=== PATIENT | male | born 1960 | race Caucasian/White ===

== ENCOUNTER → 2016-12-13 | Outpatient (CLI) | payer BC ==
--- NOTE | 2016-12-13 14:32 | ECHOS ---
DATE OF SERVICE: 12/13/2016 AGE: 55Y SEX: M HT: 68" WT: 190 lbs. Protocol Girma: X Others: Stress Echo Stage: 3 Dur. of Exercise: 7:10 *Heart Rate Blood Pressure *Rest: 82 Rest: 118/45 * *Max. Achieved: 152 Maximum BP: 172/59 85% PMHR: 141 100% PMHR: 166 *METS: 8.1 INDICATIONS: Chest pain. MEDICATIONS: Lisinopril. STRESS DATA: Pretesting physical examination showed a heart rate of 82, pressure is 118/45 mmHg. Baseline EKG showed sinus rhythm. The patient exercised on the treadmill according to Girma protocol for a total 7 minutes and achieved 8.0. METs. Max heart rate was 152, which is about 91% of maximum predicted heart rate. Maximum blood pressure was 172/59 mmHg. Clinically, the patient did not have any symptoms of chest pain or discomfort during the testing or in the recovery and the EKG did not show any significant ST or T-wave abnormalities consistent with ischemia. ECHOCARDIOGRAM IMAGES: On echocardiogram images including parasternal long axis view, parasternal short axis view, apical 4 chamber view, and apical 2 chamber view were obtained as the baseline images, at the peak of the heart rate, as well as on recovery. The echocardiogram images showed good augmentation in the left ventricular systolic function without any evidence of wall motion abnormalities consistent with ischemia. CONCLUSION: 1. Good exercise capacity. 2. Normal EKG in response to exercise. 3. Normal echocardiogram in response to exercise. 4. Essentially normal stress echocardiogram for the patient.
== END | disposition home or self-care (01) ==
LOC: RADNMMAIN 09:52
PROVIDERS: ATTEND Family Medicine
DX: R07.9 Chest pain, unspecified (principal)
CPT/HCPCS: 93017; 93350

== ENCOUNTER 2017-08-01 08:29 | Day surgery (SDC) | payer BC ==
[2017-07-31 08:52] VITALS: BMI 29.6
[~2017-08-01 08:29] MED LIST: LACTATED RINGERS 1,000 ML IV SCH
[2017-08-01 08:44] VITALS: RESP 16; TEMP 98.2
[2017-08-01] MEDS ORDERED: LIDOCAINE 1% 20 ML VIAL (10MG/ML) FOR IV START INTRADERMA ONE (08:49)
--- NOTE | 2017-08-01 09:42 | P.PCN ---
Date of Procedure: 08/01/17 Procedure(s) Performed: BRIEF HISTORY: Patient is a 56-year-old pleasant white male, scheduled for an elective colonoscopy as a part of screening for colonic neoplasia. He recently had a positive cologard stool testing. PROCEDURE PERFORMED: Colonoscopy with snare polypectomy. PREOPERATIVE DIAGNOSIS: Positive Cologard/screening for colon cancer. IV sedation per Anesthesia. PROCEDURE: After informed consent was obtained, the patient, was brought into the endoscopy unit. IV sedation was administered by Anesthesia under continuous monitoring. Digital rectal examination was normal. Initially the Olympus CF- 160 flexible video colonoscope was then inserted in the rectum, gradually advanced into the cecum without any difficulty. Careful examination was performed as the scope was gradually being withdrawn. Ileocecal valve and the appendiceal orifice were visualized and appeared normal. Prep was excellent. Mucosa of the cecum, appeared normal. In the hepatic flexure there was a 1 cm polyp removed by snare polypectomy. The rest of the ascending colon, transverse colon, descending colon, appeared normal. In the distal sigmoid colon at 20 cm from the anal was there was another 1 cm polyp removed by snare polypectomy. The rest of the sigmoid colon, and rectum appeared normal. Retroflexion was performed in the rectum and no lesions were seen. The patient tolerated the procedure well. IMPRESSION: 1 cm hepatic flexure polyp status post polypectomy 1 cm distal sigmoid colon polyp status post polypectomy RECOMMENDATIONS: Findings of this examination were discussed with the patient as well as his family. He was advised to follow with the biopsy results. If the biopsy shows a tubular adenoma he can have a repeat colonoscopy in 3 years.
[2017-08-01 10:16] VITALS: BP 130/74; PULSE 59
== END 2017-08-01 10:39 | disposition home or self-care (01) ==
LOC: ORWHC2ENDO 08:29
PROVIDERS: ATTEND Internal Medicine Gastroenterology
DX: D12.3 Benign neoplasm of transverse colon (principal); K63.5 Polyp of colon; R19.5 Other fecal abnormalities; I10 Essential (primary) hypertension; C44.90 Unspecified malignant neoplasm of skin, unspecified; Z79.899 Other long term (current) drug therapy
CPT/HCPCS: 45385; 88305

== ENCOUNTER 2018-03-20 01:11 | Emergency (ER) | payer BC ==
--- NOTE | 2018-03-20 02:11 | ED ---
SOB HPI - General Chief Complaint: Shortness of Breath Stated Complaint: difficulty sleeping Time Seen by Provider: 03/20/18 01:37 Source: patient Mode of arrival: ambulatory Limitations: no limitations - History of Present Illness Initial Comments: Patient is a 57-year-old man who has been having difficulty sleeping due to apnea. The patient states that he was told he probably has sleep apnea however he has not not been able to use the apnea machine as he states it is too loud and keeps him awake. The patient believes every time that he is falling asleep the machine wakes him he has not slept well now for couple of days. Patient is not having shortness of breath while he is awake. No dyspnea on exertion. MD Complaint: shortness of breath Onset/Timin -: week(s) Severity: moderate Improves With: nothing (Been) Worsens With: other Associated Symptoms: denies other symptoms - Related Data Home Medications Medication Instructions Recorded Confirmed Lisinopril [Zestril] 10 mg PO QAM 07/31/17 03/20/18 Melatonin 5 mg PO HS 07/31/17 03/20/18 Allergies Allergy/AdvReac Type Severity Reaction Status Date / Time No Known Allergies Allergy Verified 03/20/18 01:28 Review of Systems ROS Statement: Those systems with pertinent positive or pertinent negative responses have been documented in the HPI. ROS Other: All systems not noted in ROS Statement are negative. Constitutional: Denies: fever, chills, weakness Respiratory: Reports: as per HPI, other (Sleep apnea). Denies: cough, dyspnea Cardiovascular: Denies: chest pain, palpitations, edema Gastrointestinal: Denies: abdominal pain Neurological: Denies: headache, weakness Past Medical History Past Medical History: Cancer, Hypertension, Sleep Apnea/CPAP/BIPAP Additional Past Medical History / Comment(s): hx skin ca. states positive cologard History of Any Multi-Drug Resistant Organisms: None Reported Past Surgical History: Adenoidectomy Additional Past Surgical History / Comment(s): sinus sx Past Anesthesia/Blood Transfusion Reactions: No Reported Reaction Past Psychological History: No Psychological Hx Reported Smoking Status: Never smoker Past Alcohol Use History: None Reported Past Drug Use History: None Reported - Past Family History Mother Family Medical History: No Reported History General Exam Limitations: no limitations General appearance: alert, in no apparent distress Head exam: Present: atraumatic, normocephalic Eye exam: Present: normal appearance. Absent: scleral icterus, conjunctival injection ENT exam: Present: normal oropharynx Neck exam: Present: normal inspection Respiratory exam: Present: normal lung sounds bilaterally. Absent: respiratory distress, wheezes, rales, rhonchi, stridor Cardiovascular Exam: Present: regular rate, normal rhythm, normal heart sounds. Absent: systolic murmur, diastolic murmur, rubs, gallop GI/Abdominal exam: Present: soft. Absent: tenderness, guarding, rebound Extremities exam: Present: normal inspection, normal capillary refill. Absent: pedal edema, calf tenderness Neurological exam: Present: alert Skin exam: Present: warm, dry, intact, normal color. Absent: rash Course Vital Signs 03/20/18 03/20/18 03/20/18 01:23 01:52 03:42 Temperature 98.1 F Pulse Rate 77 71 Respiratory 20 18 17 Rate Blood Pressure 140/88 135/74 O2 Sat by Pulse 96 97 Oximetry 03/20/18 05:40 Temperature 98.3 F Pulse Rate 73 Respiratory 18 Rate Blood Pressure 127/78 O2 Sat by Pulse 97 Oximetry Medical Decision Making - Medical Decision Making Patient's 57-year-old man presenting for difficulty in with sleeping as the apnea machine keeps him awake. I did discuss following with the system dispatcher to see if there is another option that they are able to use to treat his sleep apnea. - Lab Data Result diagrams: 03/20/18 02:30 03/20/18 02:30 Lab Results 03/20/18 03/20/18 03/20/18 Range/Units 02:30 02:30 02:30 WBC 6.6 (3.8-10.6) k/uL RBC 4.96 (4.30-5.90) m/uL Hgb 15.0 (13.0-17.5) gm/dL Hct 44.3 (39.0-53.0) % MCV 89.2 (80.0-100.0) fL MCH 30.3 (25.0-35.0) pg MCHC 33.9 (31.0-37.0) g/dL RDW 12.6 (11.5-15.5) % Plt Count 201 (150-450) k/uL Neutrophils % 70 % Lymphocytes % 17 % Monocytes % 7 % Eosinophils % 3 % Basophils % 0 % Neutrophils # 4.6 (1.3-7.7) k/uL Lymphocytes # 1.2 (1.0-4.8) k/uL Monocytes # 0.5 (0-1.0) k/uL Eosinophils # 0.2 (0-0.7) k/uL Basophils # 0.0 (0-0.2) k/uL PT (9.0-12.0) sec INR (<1.2) APTT (22.0-30.0) sec D-Dimer (<0.60) mg/L FEU Sodium 139 (137-145) mmol/L Potassium 4.1 (3.5-5.1) mmol/L Chloride 106 (98-107) mmol/L Carbon Dioxide 24 (22-30) mmol/L Anion Gap 9 mmol/L BUN 20 (9-20) mg/dL Creatinine 0.87 (0.66-1.25) mg/dL Est GFR (CKD-EPI)AfAm >90 (>60 ml/min/1.73 sqM) Est GFR (CKD-EPI)NonAf >90 (>60 ml/min/1.73 sqM) Glucose 105 H (74-99) mg/dL Calcium 9.1 (8.4-10.2) mg/dL Total Bilirubin 0.7 (0.2-1.3) mg/dL AST 31 (17-59) U/L ALT 42 (21-72) U/L Alkaline Phosphatase 80 (38-126) U/L Total Creatine Kinase 312 H (55-170) U/L CK-MB (CK-2) 3.4 H (0.0-2.4) ng/mL CK-MB (CK-2) Rel Index 1.1 Troponin I <0.012 (0.000-0.034) ng/mL NT-Pro-B Natriuret Pep pg/mL Total Protein 6.3 (6.3-8.2) g/dL Albumin 3.8 (3.5-5.0) g/dL 03/20/18 03/20/18 Range/Units 02:30 02:30 WBC (3.8-10.6) k/uL RBC (4.30-5.90) m/uL Hgb (13.0-17.5) gm/dL Hct (39.0-53.0) % MCV (80.0-100.0) fL MCH (25.0-35.0) pg MCHC (31.0-37.0) g/dL RDW (11.5-15.5) % Plt Count (150-450) k/uL Neutrophils % % Lymphocytes % % Monocytes % % Eosinophils % % Basophils % % Neutrophils # (1.3-7.7) k/uL Lymphocytes # (1.0-4.8) k/uL Monocytes # (0-1.0) k/uL Eosinophils # (0-0.7) k/uL Basophils # (0-0.2) k/uL PT 10.7 (9.0-12.0) sec INR 1.1 (<1.2) APTT 27.2 (22.0-30.0) sec D-Dimer <0.17 (<0.60) mg/L FEU Sodium (137-145) mmol/L Potassium (3.5-5.1) mmol/L Chloride (98-107) mmol/L Carbon Dioxide (22-30) mmol/L Anion Gap mmol/L BUN (9-20) mg/dL Creatinine (0.66-1.25) mg/dL Est GFR (CKD-EPI)AfAm (>60 ml/min/1.73 sqM) Est GFR (CKD-EPI)NonAf (>60 ml/min/1.73 sqM) Glucose (74-99) mg/dL Calcium (8.4-10.2) mg/dL Total Bilirubin (0.2-1.3) mg/dL AST (17-59) U/L ALT (21-72) U/L Alkaline Phosphatase (38-126) U/L Total Creatine Kinase (55-170) U/L CK-MB (CK-2) (0.0-2.4) ng/mL CK-MB (CK-2) Rel Index Troponin I (0.000-0.034) ng/mL NT-Pro-B Natriuret Pep 36 pg/mL Total Protein (6.3-8.2) g/dL Albumin (3.5-5.0) g/dL - EKG Data -: EKG Interpreted by Ut EKG shows normal: sinus rhythm, axis (normal), intervals (normal), QRS complexes (normal), ST-T waves (normal) Rate: normal (Rate 65 bpm) Interpretation: normal EKG Disposition Clinical Impression: Sleep apnea Disposition: HOME SELF-CARE Condition: Good Instructions: Sleep Apnea (DC) Is patient prescribed a controlled substance at d/c from ED?: No Referrals: Tawanda Doe MD [Primary Care Provider] - 1-2 days Seymour Hobson MD [STAFF PHYSICIAN] - 1-2 days
[2018-03-20 02:46] LABS: Basophils % (A) 0 %; Eosinophils # (A) 0.2 k/uL (0-0.7); Eosinophils % (A) 3 %; HCT 44.3 % (39.0-53.0); Lymphocytes # (A) 1.2 k/uL (1.0-4.8); Lymphocytes % (A) 17 %; MCH 30.3 pg (25.0-35.0); MCHC 33.9 g/dL (31.0-37.0); MCV 89.2 fL (80.0-100.0); Mean Platelet Volume 6.1; Monocytes # (A) 0.5 k/uL (0-1.0); Monocytes % (A) 7 %; Neutrophils # (A) 4.6 k/uL (1.3-7.7); Neutrophils % (A) 70 %; Platelet Count 201 k/uL (150-450); RBC 4.96 m/uL (4.30-5.90); RDW 12.6 % (11.5-15.5); WBC 6.6 k/uL (3.8-10.6)
[2018-03-20 02:54] LABS: ALT 42 U/L (21-72); AST 31 U/L (17-59); Albumin 3.8 g/dL (3.5-5.0); Alkaline Phosphatase 80 U/L (38-126); Anion Gap 9 mmol/L; Blood Urea Nitrogen 20 mg/dL (9-20); Calcium 9.1 mg/dL (8.4-10.2); Carbon Dioxide 24 mmol/L (22-30); Chloride 106 mmol/L (98-107); Glucose 105 mg/dL (74-99); Potassium 4.1 mmol/L (3.5-5.1); Sodium 139 mmol/L (137-145); Total Bilirubin 0.7 mg/dL (0.2-1.3); Total Protein 6.3 g/dL (6.3-8.2)
[2018-03-20 02:57] LABS: D-Dimer <0.17 mg/L FEU (<0.60); INR 1.1 (<1.2); Partial Thromboplastin Time 27.2 sec (22.0-30.0); Prothrombin Time 10.7 sec (9.0-12.0)
[2018-03-20 02:58] LABS: Creatine Kinase 312 U/L (55-170)
--- NOTE | 2018-03-20 03:11 | XR ---
EXAMINATION TYPE: XR chest 2V DATE OF EXAM: 03/20/2018 COMPARISON: 02/18/2013 HISTORY: Short of breath TECHNIQUE: Frontal and lateral views of the chest are obtained. FINDINGS: Heart and mediastinum are normal. Lungs are clear. Diaphragm is normal. Bony thorax appear s normal. IMPRESSION: Normal chest. No change.
[2018-03-20 03:12] LABS: Creatine Kinase MB 3.4 ng/mL (0.0-2.4); Troponin I <0.012 ng/mL (0.000-0.034)
[2018-03-20 05:41] VITALS: BP 127/78; PULSE 73; RESP 18; TEMP 98.3
== END 2018-03-20 05:51 | disposition home or self-care (01) ==
LOC: EC 01:11
DX: G47.30 Sleep apnea, unspecified (principal); R06.02 Shortness of breath; I10 Essential (primary) hypertension; Z85.828 Personal history of other malignant neoplasm of skin; Z99.89 Dependence on other enabling machines and devices; Z79.899 Other long term (current) drug therapy
CPT/HCPCS: 36415; 71046; 80053; 82550; 82553; 83880; 84484; 85025; 85379; 85610; 85730; 93005; 99285

== ENCOUNTER → 2018-11-11 | Outpatient (CLI) | payer BC ==
[2018-11-11 15:43] LABS: HCT 44.7 % (39.0-53.0); MCH 30.1 pg (25.0-35.0); MCHC 33.5 g/dL (31.0-37.0); MCV 89.9 fL (80.0-100.0); Mean Platelet Volume 6.4; Platelet Count 222 k/uL (150-450); RBC 4.97 m/uL (4.30-5.90); RDW 13.3 % (11.5-15.5); WBC 7.1 k/uL (3.8-10.6)
[2018-11-11 15:48] LABS: Anion Gap 6 mmol/L; Blood Urea Nitrogen 17 mg/dL (9-20); Carbon Dioxide 28 mmol/L (22-30); Chloride 106 mmol/L (98-107); Sodium 140 mmol/L (137-145)
== END | disposition home or self-care (01) ==
LOC: LABPAT 14:28
PROVIDERS: ATTEND Internal Medicine Interventional Cardiology
DX: Z01.812 Encounter for preprocedural laboratory examination (principal); I25.10 Atherosclerotic heart disease of native coronary artery without angina pectoris; I10 Essential (primary) hypertension
CPT/HCPCS: 36415; 80051; 82565; 83735; 84520; 85027

== ENCOUNTER 2018-11-13 10:04 | Day surgery (SDC) | payer BC ==
[~2018-11-13 10:04] MED LIST changes: +ALPRAZolam 0.25 MG TAB PO PRN; +ALPRAZolam 0.5 MG TAB PO PRN; +ASPIRIN 325 MG TAB PO STA; +ATORVASTATIN 80 MG TAB PO STA; -LACTATED RINGERS 1,000 ML IV SCH; +NITROGLYCERIN SL TABS 0.4 MG TAB SUBLINGUAL PRN; +SODIUM CHLORIDE 0.9% 1,000 ML in EMPTY BAG 1 BAG IV ONE
[2018-11-13 10:23] VITALS: RESP 18
[2018-11-13] MEDS ORDERED: HEPARIN SODIUM 1,000 UN/ML (10ML VL) ONE ×2 (11:47→12:50)
[2018-11-13] MEDS ORDERED: VERAPAMIL 2.5 MG/ML 2 ML AMP ONE (11:47)
[2018-11-13] MEDS ORDERED: LIDOCAINE 1% INJ 10MG/ML (20 ML MDV) ONE (11:47)
[2018-11-13] MEDS: MIDAZOLAM (PF) 2 MG/2 ML VIAL IV ONE ×2 (11:58→12:05)
[2018-11-13] MEDS ORDERED: LIDOCAINE 1% INJ 10MG/ML (20 ML MDV) SQ ONE (12:04)
[2018-11-13] MEDS: VERAPAMIL SYRINGE (5 MG/10 ML) INTRAARTER ONE ×2 (12:06→12:46)
[2018-11-13] MEDS: HEPARIN SODIUM 1,000 UN/ML (10ML VL) IV ONE ×2 (12:07→12:51)
[2018-11-13] MEDS ORDERED: niCARdipine 25 MG/10 ML VIAL ONE (12:14)
[2018-11-13] MEDS: NITROGLYCERIN 1000MCG/10ML SYRINGE INTRACORON ONE ×2 (12:15→12:32)
[2018-11-13] MEDS ORDERED: HYDROmorphone 1 MG/ML 1 ML SYRINGE ONE (12:16)
[2018-11-13] MEDS ORDERED: HYDROmorphone 1 MG/ML 1 ML SYRINGE IVP ONE (12:20)
[2018-11-13] MEDS ORDERED: PRASUGREL 10 MG TAB ONE (12:20)
[2018-11-13] MEDS ORDERED: PRASUGREL 10 MG TAB PO ONE (12:23)
[2018-11-13] MEDS ORDERED: IOPAMIDOL-370 125ML BTL INJ ONE (12:38)
[2018-11-13] MEDS ORDERED: MAG HYDROX/AL HYDROX/SIMETH 30 ML CUP PO PRN (12:53)
[2018-11-13] MEDS ORDERED: RX INFO: IV CONTRAST WAS GIVEN 1 EACH MISC MISCELLANE PRN (12:53)
[2018-11-13] MEDS ORDERED: NITROGLYCERIN SL TABS 0.4 MG TAB SUBLINGUAL PRN (12:53)
[2018-11-13] MEDS ORDERED: ZOLPIDEM 5 MG TAB PO PRN (12:53)
[2018-11-13] MEDS ORDERED: ATROPINE SULFATE 0.1 MG/ML 10ML SYRINGE IV PRN (12:53)
[2018-11-13] MEDS ORDERED: SODIUM CHLORIDE 0.9% 1,000 ML IV SCH (13:00)
--- NOTE | 2018-11-13 13:11 | LTR ---
November 13, 2018 Re: Herberth Godinez Dear Dr. Doe: Herberth Godinez underwent today a heart catheterization and was found to have severe disease involving the proximal left anterior descending artery. I did perform successful stenting of the LAD with good angiographic results and without any complication. Thank you for allowing me to participate in his care and please do not hesitate to call if you have any question or concern. Sincerely, MD MALIHA Power / CHICA: [id number] /
--- NOTE | 2018-11-13 14:23 | CC ---
CARDIAC CATHETERIZATION REPORT CARDIAC CATHETERIZATION AND PERCUTANEOUS CORONARY INTERVENTION: DATE OF SERVICE: November 13, 2018 PERFORMING PHYSICIAN: Jackson Greene MD, lithographic proofer. PROCEDURE PERFORMED: 1. Selective right and left coronary angiogram. 2. Left heart catheterization. 3. Successful stenting of the proximal left anterior descending artery using 3.5 x 18 mm Xience drug-eluting stent, which was postdilated using 3.75 mm NC balloon with an excellent angiographic results and reduction of stenosis from 80% to 0%. INDICATION: This is a pleasant 57-year-old gentleman who sees Dr. Doe as an outpatient who has hypertension and dyslipidemia who was experiencing symptoms of chest discomfort concerning for angina. Because of the nature of his symptoms, I did recommend proceeding with coronary angiogram. APPROACH: Right radial artery. COMPLICATION: None. LEVEL OF SEDATION: Moderate with sedation length of 44 minutes. PROCEDURE DESCRIPTION: After obtaining an informed consent, the patient was brought to the cardiac feed mill lab technician. The right radial artery was cannulated using micropuncture technique, the micropuncture wire passed easily then I placed a 6-Croatian sheath in the right radial artery. At that point, I gave the patient 2 mg of verapamil IA and 10,000 units of heparin IV. Subsequently I did selective right and left coronary angiogram using JR4 and JL3.5 catheters. Left heart catheterization was performed using the 5-Croatian pigtail catheter. After that I did intervene on the right coronary artery. Please see a separate paragraph for that. SELECTIVE CORONARY ANGIOGRAM: 1. The right coronary artery is a large caliber vessel and it is a dominant vessel. The RCA has an inferior takeoff, has mild disease only. Distally bifurcates into PDA and PLV branches both appeared to be angiographically normal. 2. The left main is angiographically normal. It bifurcates into left circumflex, ramus intermedius, and left anterior descending artery. 3. Left circumflex is a moderate caliber vessel. It is a nondominant vessel and appeared to be angiographically normal. 4. The ramus intermedius is a large caliber vessel. The proximal portion appeared to be normal and gives rise to branch which has an ostial disease appeared to be in the range of 40%. The mid and distal ramus intermedius appeared to be angiographically normal. 5. The LAD: The proximal LAD has a lesion appeared to be in the range of 70% to 80%, hazy and calcified as well. The mid and distal LAD appeared to be angiographically normal. HEMODYNAMICS: The left ventricular end-diastolic pressure was about 10 mmHg without significant gradient across the aortic valve. PCI OF THE LAD: Anticoagulation was initiated using the heparin which was given during the diagnostic heart catheterization, but we did perform an ACT at the beginning. Subsequently I did engage the left main using JL3.5 Guide. I did wire the LAD using a run-through wire. After that, I did balloon angioplasty using 3.0 x 12 mm balloon before I deployed a 3.5 x 18 mm Xience ELAINE where the stent was positioned under fluoroscopy guidance and deployed at 12 atmospheres for 20 seconds. I did post dilate the stent using 3.75 mm NC balloon. The final angiogram showed excellent results and the procedure was completed without any complication. CONCLUSION: 1. Severe disease involving the proximal left anterior descending artery. 2. Successful stenting of the proximal LAD using 3.5 x 18 mm Xience drug-eluting stent, which was postdilated using 3.75 mm NC balloon with excellent angiographic results. POSTPROCEDURE MANAGEMENT: 1. Dual antiplatelet therapy. 2. Risk factors modifications. 3. Follow up with the patient. MMODL / IJN: [id number] /
[2018-11-13] MEDS: METOPROLOL TARTRATE 12.5 MG TAB PO SCH (20:20)
[2018-11-13] MEDS ORDERED: ATORVASTATIN 80 MG TAB PO SCH (21:00)
[2018-11-13 22:13] VITALS: BMI 31.1
[2018-11-14 06:50] LABS: Basophils % (A) 0 %; Eosinophils # (A) 0.2 k/uL (0-0.7); Eosinophils % (A) 3 %; HCT 44.4 % (39.0-53.0); HGB 14.1 gm/dL (13.0-17.5); Lymphocytes # (A) 1.4 k/uL (1.0-4.8); Lymphocytes % (A) 20 %; MCH 28.7 pg (25.0-35.0); MCHC 31.7 g/dL (31.0-37.0); MCV 90.7 fL (80.0-100.0); Mean Platelet Volume 6.3; Monocytes # (A) 0.6 k/uL (0-1.0); Monocytes % (A) 8 %; Neutrophils # (A) 4.6 k/uL (1.3-7.7); Neutrophils % (A) 66 %; Platelet Count 198 k/uL (150-450); RDW 13.6 % (11.5-15.5)
[2018-11-14 07:02] LABS: Anion Gap 5 mmol/L; Blood Urea Nitrogen 13 mg/dL (9-20); Calcium 8.8 mg/dL (8.4-10.2); Carbon Dioxide 24 mmol/L (22-30); Chloride 110 mmol/L (98-107); Glucose 97 mg/dL (74-99); Potassium 4.4 mmol/L (3.5-5.1); Sodium 139 mmol/L (137-145)
[2018-11-14 08:32] VITALS: BP 129/67; PULSE 74; TEMP 97.6
[2018-11-14] MEDS: METOPROLOL TARTRATE 12.5 MG TAB PO SCH (08:35)
[2018-11-14] MEDS ORDERED: ASPIRIN 325 MG TAB PO SCH (09:00)
[2018-11-14] MEDS ORDERED: PRASUGREL 10 MG TAB PO SCH (09:00)
[2018-11-14] MEDS ORDERED: LISINOPRIL 10 MG TAB PO SCH (09:00)
--- NOTE | 2018-11-14 09:13 | P.PN ---
Subjective Progress Note Date: 11/14/18 Discharge note This is a 57 stroke gentleman with history of hypertension and hyperlipidemia who was brought to the hospital by Dr. Greene yesterday to undergo cardiac catheterization, subsequent to that he underwent stenting of the proximal LAD. He had an episode this morning of some chest discomfort but states that he fell asleep on his stomach and his telemetry box was on his chest. At the time of my examination he currently was chest pain-free, his EKG showed normal sinus rhythm with no changes from post-PCI. Blood pressure 128/60 with a heart rate of 70, 96% on room air. White blood cell count is normal, hemoglobin 14.1, platelet count 198. Sodium 139, potassium 4.4, BUN 13 and c reatinine 0.7. Objective - Vital Signs Vital signs: Vital Signs Temp 97.6 F 11/14/18 08:31 Pulse 74 11/14/18 08:31 Resp 18 11/14/18 08:31 BP 129/67 11/14/18 08:31 Pulse Ox 96 11/14/18 08:31 Intake & Output 11/13/18 11/14/18 11/14/18 18:59 06:59 18:59 Intake Total 430 100 Balance 430 100 Weight 90 kg Intake: IV 250 Oral 180 100 Other: Voiding Method Toilet # Voids 1 - Exam PHYSICAL EXAMINATION: GENERAL: 57 stroke gentleman in no acute distress at the time of my examination HEENT: Head is atraumatic, normocephalic. Pupils equal, round. Sclera anicteric. Conjunctiva are clear. Mucous membranes of the mouth are moist. Neck is supple. There is no elevated jugular venous pressure. No carotid bruit is heard. HEART EXAMINATION: Heart S1, S2 normal. No murmur or gallop heard. CHEST EXAMINATION: Lungs are clear to auscultation and precussion. No chest wall tenderness is noted on palpation or with deep breathing. ABDOMEN: Soft, nontender. Bowel sounds are heard. No organomegaly noted. EXTREMITIES: 2+ peripheral pulses with no evidence of peripheral edema and no calf tenderness noted. Right radial site clean and dry, good distal pulse. There is a small amount of ecchymosis noted. NEUROLOGIC patient is awake, alert and oriented 3 . . - Labs CBC & Chem 7: 11/14/18 06:24 11/14/18 06:24 Labs: Abnormal Lab Results - Last 24 Hours (Table) 11/14/18 Range/Units 06:24 Chloride 110 H (98-107) mmol/L Assessment and Plan Plan: Assessment and plan #1 status post angioplasty and stenting of the LAD #2 hypertension #3 hyperlipidemia #4 sleep apnea Plan Patient can go home today. Follow-up appointment with Dr. Macias in the office post discharge. Discharge medications include aspirin 81 mg daily, Lipitor 80 mg daily, lisinopril 10 mg daily, metoprolol 12-1/2 mg one tablet by mouth twice a day, Effient 10 mg daily and sublingual nitroglycerin as needed for chest pain. DNP note has been reviewed, I agree with a documented findings and plan of care. Patient was seen and examined.
== END 2018-11-14 11:00 | disposition home or self-care (01) ==
LOC: CATHCVL 10:04 → 3SCARD 17:39 → CATHCVL 11-14 11:00
PROVIDERS: ATTEND Internal Medicine Interventional Cardiology
DX: I25.110 Atherosclerotic heart disease of native coronary artery with unstable angina pectoris (principal); I10 Essential (primary) hypertension; E78.5 Hyperlipidemia, unspecified; G47.33 Obstructive sleep apnea (adult) (pediatric); E78.00 Pure hypercholesterolemia, unspecified; Z82.49 Family history of ischemic heart disease and other diseases of the circulatory system; Z79.899 Other long term (current) drug therapy
CPT/HCPCS: 94760; 93458; 85347; 80048; 85025; C9600; C1887; C1725 ×2; C1769 ×2; C1874; C1894; J2001; J1644; J1170; Q9967; J2250

== ENCOUNTER → 2019-01-11 | Outpatient (CLI) | payer BC ==
[2019-01-11 18:18] LABS: LDL Cholesterol,Calculated 87.8 mg/dL (0.0-131.0); VLDL Calculation 37.2 mg/dL (5.00-40.00)
== END | disposition home or self-care (01) ==
LOC: LABWHC1 13:43
PROVIDERS: ATTEND Internal Medicine Interventional Cardiology
DX: E78.2 Mixed hyperlipidemia (principal)
CPT/HCPCS: 36415; 80061; 84450; 84460

== ENCOUNTER 2020-08-06 11:41 | Emergency (ER) | payer BC ==
[2020-08-06 11:51] VITALS: RESP 18
--- NOTE | 2020-08-06 12:31 | ED ---
General Adult HPI - General Chief complaint: Fall Stated complaint: fall, head injury Time Seen by Provider: 08/06/20 11:58 Source: patient Mode of arrival: ambulatory Limitations: no limitations - History of Present Illness Initial comments: Dictation was produced using [employer] dictation software. please excuse any grammatical, word or spelling errors. This patient was cared for during a federal and state declared state of emergency secondary to Covid 19 Chief Complaint: 59-year-old male presents after fall. History of Present Illness: Patient is a 59-year-old male with history of sleep deprivation. He presents today after he had fallen. Patient was walking on his driveway when he slipped on black ice. Patient states his feet fell from under him causing him to land on his back. He didn't strike his head. Patient had very poor sleep last night. After we cannot P at several minutes of repetitive speech and confusion. He denies any loss of consciousness. Patient does remember slightly saying confused things. He ambulated without any issues. He also noted that he had some lower back pain. He is ambulatory with minimal complications. Does complain of some mild pain with lying flat. No numbness and paresthesias to the arms or legs. at bedside reports that he was very confusing they're very concerned probably him to come to the emergency department. 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 States that he's been busy with online teaching. The ROS documented in this emergency department record has been reviewed and confirmed by me. Those systems with pertinent positive or negative responses have been documented in the HPI. All other systems are other negative and/or noncontributory. PHYSICAL EXAM: General Impression: Alert and oriented x3, not in acute distress HEENT: Normocephalic atraumatic, extra-ocular movements intact, pupils equal and reactive to light bilaterally, mucous membranes moist, no hemotympanum Cardiovascular: Heart regular rate and rhythm Chest: Able to complete full sentences, no retractions, no tachypnea Abdomen: abdomen soft, non-tender, non-distended, no organomegaly Musculoskeletal: Pulses present and equal in all extremities, no peripheral edema Motor: no focal deficits noted Neurological: CN II-XII grossly intact, no focal motor or sensory deficits noted Skin: Intact with no visualized rashes Psych: Normal affect and mood ED course: 59-year-old male presents emergency Department after head injury. He also has complaints of back pain. Signs upon arrival are within acceptable limits. Patient does not take any anticoagulation medications. She reports a long history of insomnia and sleep deprivation. Physical examination is benign. He has no focal neurologic deficits. Clinically he is well-appearing. He is showing signs of concussion. Concussion precautions were discussed.Computed tomography scan of brain shows no significant other maladies. Lumbar x-rays nonacute. Patient observed in the emergency department for approximately 2 hours as in stable medical condition. Patient is advised follow up with his primary care physician for outpatient management of concussion protocols. Return parameters discussed. Still to avoid any exertional activity, he is told to improve his sleep hygiene daily basis. Advised follow-up with primary care physician upon discharge for outpatient management of concussion. - Related Data Home Medications Medication Instructions Recorded Confirmed lisinopriL [Zestril] 10 mg PO QAM 07/31/17 08/06/20 Metoprolol Tartrate 12.5 mg PO BID 08/06/20 08/06/20 Previous Rx's Medication Instructions Recorded Aspirin 325 mg PO DAILY #30 tab 11/14/18 Allergies Allergy/AdvReac Type Severity Reaction Status Date / Time No Known Allergies Allergy Verified 08/06/20 13:30 Review of Systems ROS Statement: Those systems with pertinent positive or pertinent negative responses have been documented in the HPI. ROS Other: All systems not noted in ROS Statement are negative. Past Medical History Past Medical History: Cancer, Chest Pain / Angina, GERD/Reflux, Hypertension, Sleep Apnea/CPAP/BIPAP Additional Past Medical History / Comment(s): SKIN CANCER, HX COLON POLYPS, SLEEP APNEA- CURRENTLY USING DENTAL DEVICE., OCCASIONAL GERD., SEE CARDIOLOGY H & P. History of Any Multi-Drug Resistant Organisms: None Reported Past Surgical History: Adenoidectomy Additional Past Surgical History / Comment(s): sinus sx Past Anesthesia/Blood Transfusion Reactions: No Reported Reaction Past Psychological History: No Psychological Hx Reported Smoking Status: Never smoker Past Alcohol Use History: None Reported Past Drug Use History: None Reported - Past Family History Mother Family Medical History: No Reported History General Exam Limitations: no limitations Course Vital Signs 08/06/20 11:47 Temperature 97.7 F Pulse Rate 66 Respiratory 18 Rate Blood Pressure 160/84 O2 Sat by Pulse 99 Oximetry Disposition Clinical Impression: Concussion, Back strain Disposition: HOME SELF-CARE Condition: Good Instructions (If sedation given, give patient instructions): Fall Prevention for Older Adults (ED), Concussion (ED) Is patient prescribed a controlled substance at d/c from ED?: No Referrals: Tawanda Doe MD [Primary Care Provider] - 1-2 days Time of Disposition: 13:42
--- NOTE | 2020-08-06 13:32 | XR ---
Lumbar spine HISTORY: Trauma and pain 3 views of the lumbar spine Bone mineralization, vertebral body height and alignment are maintained, disc spaces mildly reduced L 4-5 and L5-S1, there is multilevel spondylosis. Sclerosis present in the posterior elements, question spondylolysis at L5. IMPRESSION: No acute fracture or subluxation. There may be spondylolysis L5, there is degenerative di sc disease, facet arthropathy.
--- NOTE | 2020-08-06 13:36 | CT ---
EXAMINATION TYPE: CT brain wo con DATE OF EXAM: 08/06/2020 COMPARISON: None HISTORY: Trauma today with posterior injury CT DLP: 1084.4 mGycm Automated exposure control for dose reduction was used. FINDINGS: The ventricles, basal cisterns and sulci over convexities are within normal limits. There is no mass, mass effect, or shift of the midline structures and there is no intra or extra-axia l hemorrhage. No abnormal density is seen throughout the brain parenchyma. The posterior fossa including the brainstem, fourth ventricle and cerebellar pontine angles appear no rmal. A visualized paranasal sinuses and mastoid air cells are well aerated. The calvarium is intact. IMPRESSION: NO SIGNIFICANT ABNORMALITY SEEN.
[2020-08-06 13:45] VITALS: BP 124/64; PULSE 74; TEMP 98.1
== END 2020-08-06 13:44 | disposition home or self-care (01) ==
LOC: EC 11:41
DX: S39.012A Strain of muscle, fascia and tendon of lower back, initial encounter (principal); S06.0X1A Concussion with loss of consciousness of 30 minutes or less, initial encounter; I10 Essential (primary) hypertension; G47.33 Obstructive sleep apnea (adult) (pediatric); Z79.899 Other long term (current) drug therapy; Z99.89 Dependence on other enabling machines and devices; Z85.828 Personal history of other malignant neoplasm of skin; W00.0XXA Fall on same level due to ice and snow, initial encounter
CPT/HCPCS: 70450; 72100; 99284

== ENCOUNTER → 2021-06-22 | Outpatient (CLI) | payer BC ==
[2021-06-22 18:35] LABS: Basophils # (A) 0.04 X 10*3/uL (0.00-0.10); Basophils % (A) 0.7 %; Eosinophils # (A) 0.23 X 10*3/uL (0.04-0.35); HCT 45.4 % (39.6-50.0); HGB 15.1 g/dL (13.0-17.0); Lymphocytes # (A) 1.51 X 10*3/uL (0.90-5.00); MCHC 33.3 g/dL (32.0-37.0); MCV 90.3 fL (80.0-97.0); Mean Platelet Volume 8.6 fL (9.5-12.2); Monocytes # (A) 0.66 X 10*3/uL (0.20-1.00); Monocytes % (A) 11.4 %; Neutrophils # (A) 3.36 X 10*3/uL (1.80-7.70); Neutrophils % (A) 57.7 %; Platelet Count 210 X 10*3/uL (140-440); RBC 5.03 X 10*6/uL (4.40-5.60); RDW 12.4 % (11.5-14.5); WBC 5.81 X 10*3/uL (4.50-10.00)
[2021-06-23 00:44] LABS: ALT 29 U/L (10-49); AST 26 U/L (14-35); African American GFR (CKD) 108.1 (60.0-200.0); Albumin 4.1 g/dL (3.8-4.9); Albumin/Globulin Ratio 1.88 (1.60-3.17); Alkaline Phosphatase 101 U/L (41-126); BUN/Creat Ratio 14.81 Ratio (12.00-20.00); Blood Urea Nitrogen 13.3 mg/dL (9.0-27.0); Calcium 9.2 mg/dL (8.7-10.3); Carbon Dioxide 21.5 mmol/L (20.0-27.5); Chloride 106 mmol/L (96-109); Globulin 2.2 g/dL (1.6-3.3); Glucose 94 mg/dL (70-110); LDL Cholesterol,Calculated 101.6 mg/dL (0.0-131.0); Magnesium 2.2 mg/dL (1.5-2.4); Non-African American GFR(CKD) 93.2 (60.0-200.0); Potassium 4.4 mmol/L (3.5-5.5); Sodium 141 mmol/L (135-145); Total Protein 6.3 g/dL (6.2-8.2)
== END | disposition home or self-care (01) ==
LOC: LABWHC1 11:51
PROVIDERS: ATTEND Nurse Practitioner Adult Health
DX: I10 Essential (primary) hypertension (principal); E78.5 Hyperlipidemia, unspecified; I25.10 Atherosclerotic heart disease of native coronary artery without angina pectoris
CPT/HCPCS: 36415; 80053; 80061; 83735; 84443; 84481; 85025

== ENCOUNTER → 2024-01-23 | Outpatient (CLI) | payer BC ==
[2024-01-23 20:25] LABS: Basophils # (A) 0.05 X 10*3/uL (0.00-0.10); Basophils % (A) 0.7 %; Eosinophils # (A) 0.34 X 10*3/uL (0.04-0.35); Eosinophils % (A) 4.7 %; HCT 47.8 % (39.6-50.0); HGB 16.2 g/dL (13.0-17.0); Lymphocytes # (A) 1.66 X 10*3/uL (0.90-5.00); MCH 30.8 pg (27.0-32.0); MCHC 33.9 g/dL (32.0-37.0); MCV 90.9 FL (80.0-97.0); Mean Platelet Volume 8.8 FL (9.5-12.2); Monocytes # (A) 0.62 X 10*3/uL (0.20-1.00); Monocytes % (A) 8.6 %; NRBC Per 100 WBC 0 X 10*3/uL (0.00-0.01); Neutrophils # (A) 4.54 X 10*3/uL (1.80-7.70); Neutrophils % (A) 62.9 %; Platelet Count 214 X 10*3/uL (140-440); RBC 5.26 X 10*6/uL (4.40-5.60); RDW 12.4 % (11.5-14.5); WBC 7.22 X 10*3/uL (4.50-10.00)
[2024-01-23 20:59] LABS: ALT 24 U/L (10-49); AST 24 U/L (14-35); Albumin 4.4 g/dL (3.8-4.9); Albumin/Globulin Ratio 1.91 Ratio (1.60-3.17); Alkaline Phosphatase 103 U/L (41-126); Blood Urea Nitrogen 17.2 mg/dL (9.0-27.0); Calcium 9.1 mg/dL (8.7-10.3); Carbon Dioxide 25.6 mmol/L (21.6-31.8); Chloride 104 mmol/L (96-109); Chol/HDL Ratio 5.54 Ratio; Creatine Kinase 149 U/L (35-257); Globulin 2.3 g/dL (1.6-3.3); Glucose 98 mg/dL (70-110); LDL Cholesterol,Calculated 121.7 mg/dL (0.0-131.0); Potassium 4.2 mmol/L (3.5-5.5); Prostate Specific Antigen 0.66 ng/mL (0.000-4.500); Sodium 140 mmol/L (135-145); Total Protein 6.7 g/dL (6.2-8.2)
== END | disposition home or self-care (01) ==
LOC: LABWHC1 14:56
PROVIDERS: ATTEND Family Medicine
DX: Z00.00 Encounter for general adult medical examination without abnormal findings (principal); Z12.5 Encounter for screening for malignant neoplasm of prostate; E78.5 Hyperlipidemia, unspecified
CPT/HCPCS: 36415; 80053; 80061; 82550; 83036; 84153; 84443; 85025